=== PATIENT | male | born 1950 | race Hispanic/Latino ===

== ENCOUNTER → 2019-06-15 | Outpatient (CLI) | payer OTHER ==
[~2019-06-15] MED LIST: KETO.5OS OU; LOSA100T58 PO; MYCO500V2 IV; OFLO35OS OU; PREDNISOL OU; PYRI60TA PO
--- NOTE | 2019-06-15 10:00 | NUR ---
MBSS COMPLETED. -PENETRATION OR ASPIRATION. RECOMMEND REGULAR TEXTURE, THIN LIQUIDS; PILLS WHOLE WITH LIQUIDS. Addendum: 06/15/19 at 1431 by SIRIA ERIC, [facility] Amended: Links added.
== END | disposition home or self-care (01) ==
LOC: RAH 09:54
PROVIDERS: ATTEND Family Medicine
DX: R13.10 Dysphagia, unspecified (principal); R47.1 Dysarthria and anarthria; I10 Essential (primary) hypertension
CPT/HCPCS: 74230; 92611